=== PATIENT | female | born 1980 | race Caucasian/White ===

== ENCOUNTER 2020-06-26 13:16 | Inpatient (IN) | payer SELFPAY ==
[2020-06-26] VITALS (37 sets, daily range): BP systolic 106–156; BP diastolic 59–109; PULSE 68–104; RESP 11–28; TEMP 36–36.9; O2SAT 96–100
--- NOTE | 2020-06-26 13:15 | RT.EKG_ITS ---
APPROVED REPORT Exam: Resting ECG Patient Location: E HR:76 bpm ECG Measurements Heart Rate 76 AXIS WA 124 P 76 QRSd 89 QRS 49 QT 432 T 38 QTc 484 Conclusion Sinus rhythm...normal P axis, V-rate 60- 99 qtc 484
[2020-06-26] MEDS: Lactated Ringers 1,000 ML 1000 ML IV (13:35)
[2020-06-26 13:41] LABS: Abs Immature Grans 0.03 10^3/uL (0.0-0.06); Absolute Basophil Count 0.07 10^3/uL (0.0-0.2); Absolute Eosinophil Count 0.07 10^3/uL (0.0-0.7); Absolute Lymphocyte Count 2.19 10^3/uL (1.2-3.4); Absolute Monocyte Count 0.72 10^3/uL (0.1-0.8); Absolute Neutrophil Count 6.14 10^3/uL (1.2-6.7); Basophils % 0.8; Eosinophils % 0.8; HCT 45.7 % (36.0-46.0); HGB 15.8 g/dL (11.2-15.7); Immature Grans % 0.3; Lymphocytes % 23.8; MCH 34.6 pg (27.0-33.0); MCHC 34.6 % (32.0-36.0); MPV 9.3 fL (8.0-11.0); Monocytes % 7.8; Neutrophils % 66.5; Nucleated RBC 0 %; Platelet Count 346 10^3/uL (130-400); RBC 4.57 10^6/uL (3.93-5.22); RDW 12.6 % (11.7-14.6); RDW-SD 46.9 fL; WBC 9.22 10^3/uL (4.4-10.8)
[2020-06-26] MEDS: POTASSIUM CHLORIDE 20 MEQ/100 ML BAG 50 MEQ (13:44)
[2020-06-26] MEDS: LORazepam 2 MG/ML VIAL 1 MG IVP (13:45)
[2020-06-26] MEDS: Metoclopramide 10 MG/2 ML VIAL 20 MG IVP ×2 (13:45→19:28)
[2020-06-26 14:00] LABS: ALT 75 U/L (14-59); AST 135 U/L (15-37); Albumin 4.3 g/dL (3.4-5.0); Alkaline Phosphatase 104 U/L (46-116); Anion Gap 19.3 mmol/L (3-11); BUN 9 mg/dL (7-18); CO2 20.7 mmol/L (21.0-32.0); CREATININE 1.11 mg/dL (0.55-1.02); Calcium 9.4 mg/dL (8.5-10.1); Chloride 100 mmol/L (98-107); Estimated GFR 54.17 (mL/min/1.73m2); Glucose 142 mg/dL (74-106); Magnesium 1.5 mg/dL (1.8-2.4); Potassium 3.8 mmol/L (3.5-5.1); Sodium 140 mmol/L (136-145); Total Protein 8.5 g/dL (6.4-8.2)
--- NOTE | 2020-06-26 14:30 | DI.CT_ITS ---
EXAM: CT ABDOMEN PELVIS W CLINICAL HISTORY: Vomiting, lower abdominal pain. TECHNIQUE: Imaging Protocol: Axial computed tomography images with coronal and sagittal reformatted images were created and reviewed CONTRAST MATERIAL: Intravenous: Omnipaque 350 Contrast volume:. Cc Oral: no COMPARISON: No exams were available for comparison FINDINGS: ABDOMEN: Lung Bases: Normal where visualized. Liver: Mild fatty infiltration. Area of focal fat near the falciform ligament.. No measurable mass. Gallbladder and biliary tract: No radiodense calculus or dilation. Pancreas: Normal density, no abnormal calcifications or inflammatory process. Spleen: Normal. Kidneys: Normal size, contour and axis. No radiodense stones or obstructive uropathy. No masses seen. Adrenal glands: No masses seen. Abdominal Aorta: Abdominal portion non-dilated. PELVIS: Bladder: Symmetric distention, no gross wall thickening. Bowel: The colon is mostly collapsed. Suture material is seen near the base of the cecum, presumably related to appendectomy. The surgical clip is also present. No obstruction or bowel wall thickenin g. Peritoneal cavity: No ascites, collection or mesenteric inflammatory response. No free air. Bones: Within normal limits. Partial sacralization of L5. Reproductive organs: Within normal limits. Right ovary is not identified. Lymph nodes: Unremarkable. Impression: No acute abnormality is identified in the abdomen and pelvis. RADIATION DOSE DELIVERED: 622.9mGy.cm Total DLP DATA REPOSITORY: All CT scans at this facility are submitted to the National Radiology Data Registry (NRDR) Dose Index Registry (DIR) with the [employer] (ACR). RADIATION OPTIMIZATION: All CT scans at this facility use at least one of these dose optimization te chniques: automated exposure control; mA and/or kV adjustment per patient size (includes targeted exa ms where dose is matched to clinical indication); or iterative reconstruction.
[2020-06-26] MEDS: MAGNESIUM SULFATE 1 GM/100 ML BAG IVPB (14:45)
[2020-06-26] MEDS: DEXTROSE 5%-0.9% SALINE 1,000 ML 200 ML IV ×2 (14:45→20:42)
[2020-06-26] MEDS: Normal Saline Flush 10 ML SYR IVP ×3 (14:46→15:14)
[2020-06-26] MEDS: diphenhydrAMINE 50 MG/ML VIAL 25 MG IVP (15:06)
[2020-06-26] MEDS: Prochlorperazine 10 MG/2 ML VIAL IVP ×2 (15:07→21:41)
[2020-06-26] MEDS: Omnipaque 350 MG/ML 100 ML BTL IJ (15:13)
[2020-06-26] MEDS: Normal Saline - Diluent 50 ML VIAL IV (15:14)
--- NOTE | 2020-06-26 15:22 | W.ED.GENAD ---
Discharge Plan Disposition Condition: Improving Discharge Details Chief Complaint: Nausea/Vomit/Diar Admit Date/Time: 06/26/20 20:02 Admit Provider: Noel Fabian Attending Provider: Noel Fabian Primary Care Provider: Unknown,Unknown ED Provider: Teo Varner Discharge Instructions Activity:: Activity as Tolerated Equipment/Supplies:: No Equipment Needed Diet:: As Tolerated Discharge Orders Discharge Orders: Discharge Order (Routine); Ordered 06/27/20 Ordered By: Malena Nunez Discharge Data Discharge Date/Time-TO BE ENTERED AT DEPARTURE: 06/26/20 20:31 Medical Decision Making 14:30??40-year-old female presents with nausea and excessive vomiting today. Patient is tachypneic, anxious, and has spasm of bilateral hands. Suspect hyperventilation, consider electrolyte abnormalities. Screening ECG was reviewed: Please see report. Nondiagnostic. QTC 484. Patient given Reglan IV, Ativan IV, IV fluid bolus. Consider acute intra-abdominal surgical process and will obtain CT of the abdomen pelvis. Patient regularly consumes heavy amounts of alcohol. Last alcohol beverage was last night. No tremor. --Labs reviewed and anion gap acidosis noted. Low mag noted. Potassium normal. 15:30 --patient continues to have nausea. I will give Compazine IV and Benadryl IV. We will give D5 normal saline to correct anion gap and magnesium IV. --Patient was given Compazine and Benadryl for continued nausea. --Patient was observed inducing vomiting digitally by nursing. I recommended that she stop doing this. --Patient has received a liter of crystalloid and liter of D5 normal saline. Plan to recheck chemistry. Continues to have nausea, will redose Reglan IV. HPI General Mode of arrival: EMS. Date/Time Provider Initiated Documentation: 06/26/20 13:33. Limitations to Documentation: no limitations. Information obtained by: patient and EMS. HPI Narrative: 40-year-old female presents with chief complaint of vomiting. Patient notes she is vomited 30 times today. Nausea started this morning. Yesterday she felt fine. Symptoms are severe. No hematemesis. No modifiers. She has associated lower abdominal pain. Described as sharp and cramping. She believes she has stomach flu. No known sick contacts. Patient does admit to regular and heavy alcohol consumption. She states she has 4 glasses of wine a night, every night. When I asked her her max drinks tonight she says 6. Patient notes she is having some spasms of her hands bilaterally. No headache. Related Data Home Medications Medication Instructions Recorded Confirmed ondansetron HCl [Zofran] 4 mg PO Q6H PRN #10 tab 06/27/20 Previous Rx's Medication Instructions Recorded ondansetron HCl [Zofran] 4 mg PO Q6H PRN #10 tab 06/27/20 Allergies Allergy/AdvReac Type Severity Reaction Status Date / Time No Known Allergies Allergy Unverified 06/26/20 13:29 General Stated Complaint: Nausea/Vomit/Diar ROXANNE: 3 Review of Systems All systems reviewed & are unremarkable except as noted in HPI and below Constitutional Constitutional: Denies fever(s) Cardiovascular Cardiovascular: Denies chest pain and Denies dyspnea Respiratory Respiratory: Denies dyspnea Gastrointestinal Gastrointestinal: Reports as per HPI [facility] Medical History Alcohol use disorder Smoker Surgical History H/O oophorectomy H/O tubal ligation Hx of appendectomy Social History (Updated 06/26/20 @ 22:27 by Noel Fabian) Smoking risk assessment performed?: No Alcohol Intake: current Alcohol Intake frequency: 3 or more drinks per day Drug use: Daily Substance use type: marijuana and crack/cocaine Details: States cocaine rare, did use on Thursday. Denies opioids. Current gender identity: female Do you feel safe at home: Yes Do you feel safe in your relationship?: Yes Additional Social history: Lives with her boyfriend Avinash Babb Not currently working. Has children, but they live with their father. Exam Const General: cooperative and no acute distress [facility] Head: normocephalic and atraumatic Mouth: moist mucous membranes Eyes Conjunctivae: normal conjunctivae Sclera: normal sclerae Neck Neck: trachea midline and supple Resp Effort & Inspection: tachypneic Auscultation: clear to auscultation bilaterally, no rales, no rhonchi and no wheezes Cardio Rate: regular rate and not tachycardic Rhythm: regular rhythm GI Palpation: soft, not firm, no guarding, no masses, not rigid and tender in the LLQ and in the RLQ Skin General skin exam: no rashes or lesions noted Neuro General: patient alert, patient awake, patient oriented x3 and tone normal Extrem General: no edema Psych Appearance: grossly normal Mental Status: mental status grossly normal Course Vital Signs Vital signs: Vital Signs Temperature 36.1 C L 06/26/20 13:24 Pulse 86 06/26/20 13:24 Respiratory Rate 28 H 06/26/20 13:24 Blood Pressure 143/109 H 06/26/20 13:24 Pulse Oximetry 100 06/26/20 13:24 Temperature 36.1 C L 06/26/20 13:24 Temperature Source Skin 06/26/20 13:24 Pulse 76 06/26/20 14:01 Pulse 90 06/26/20 15:00 Respiratory Rate 16 06/26/20 15:00 Respiratory Effort Non-Labored 06/26/20 13:29 Respiratory Pattern Tachypnea 06/26/20 13:35 Blood Pressure 137/88 06/26/20 14:01 Blood Pressure Mean 100 06/26/20 14:01 Blood Pressure Position Sitting 06/26/20 13:24 Pulse Oximetry 98 06/26/20 15:00 Oxygen Delivery Method Room Air 06/26/20 13:24 Oxygen Flow Rate 0 06/26/20 13:24 Lab/Test Results Lab/Test Results: Laboratory Tests Range/Units 06/26/20 06/26/20 13:30 13:30 WBC (4.4-10.8) 10^3/uL 9.22 RBC (3.93-5.22) 10^6/uL 4.57 Hgb (11.2-15.7) g/dL 15.8 H Hct (36.0-46.0) % 45.7 MCV (80-95) fL 100.0 H MCH (27.0-33.0) pg 34.6 H MCHC (32.0-36.0) % 34.6 RDW (11.7-14.6) % 12.6 Plt Count (130-400) 10^3/uL 346 MPV (8.0-11.0) fL 9.3 Immature Gran % 0.3 Neutrophils % 66.5 Lymphocytes % 23.8 Monocytes % 7.8 Eosinophils % 0.8 Basophils % 0.8 Nucleated RBC % % 0 Absolute Neutrophils (1.2-6.7) 10^3/uL 6.14 Absolute Lymphocytes (1.2-3.4) 10^3/uL 2.19 Absolute Monocytes (0.1-0.8) 10^3/uL 0.72 Absolute Eosinophils (0.0-0.7) 10^3/uL 0.07 Absolute Basophils (0.0-0.2) 10^3/uL 0.07 Sodium (136-145) mmol/L 140 Potassium (3.5-5.1) mmol/L 3.8 Chloride (98-107) mmol/L 100 Carbon Dioxide (21.0-32.0) mmol/L 20.7 L Anion Gap (3-11) mmol/L 19.3 H BUN (7-18) mg/dL 9 Creatinine (0.55-1.02) mg/dL 1.11 H Estimated GFR/1.73 m2 (mL/min/1.73m2) 54.17 Glucose (74-106) mg/dL 142 H Calcium (8.5-10.1) mg/dL 9.4 Magnesium (1.8-2.4) mg/dL 1.5 L Total Bilirubin (0.2-1.0) mg/dL 1.0 AST (15-37) U/L 135 H ALT (14-59) U/L 75 H Alkaline Phosphatase (46-116) U/L 104 Total Protein (6.4-8.2) g/dL 8.5 H Albumin (3.4-5.0) g/dL 4.3
[2020-06-26 19:41] LABS: Anion Gap 9.8 mmol/L (3-11); BUN 8 mg/dL (7-18); CO2 25.2 mmol/L (21.0-32.0); CREATININE 0.92 mg/dL (0.55-1.02); Calcium 8.1 mg/dL (8.5-10.1); Chloride 103 mmol/L (98-107); Glucose 204 mg/dL (74-106); Potassium 3.8 mmol/L (3.5-5.1); Sodium 138 mmol/L (136-145)
[2020-06-26 19:59] LABS: Bilirubin Negative (Negative); Blood Moderate (Negative); Clarity Clear (Clear); Glucose 100 mg/dL (Negative); Ketones Negative (Negative); Leukocyte Esterase Negative (Negative); Nitrite Negative (Negative); Specific Gravity 1.015 (1.005-1.025); Urobilinogen 0.2 EU/dL (Up TO 0.2); pH 8.5 (5-8)
[2020-06-26 20:06] LABS: Lipase 158 U/L (73-393)
[2020-06-26 20:15] LABS: *AMPHETAMINES SCREEN URINE Negative (Negative); *BARBITURATES SCREEN URINE Negative (Negative); *BENZODIAZEPINES SCREEN URINE Negative (Negative); Cannabinoids THC POSITIVE (Negative); Cocaine Screen,Urine POSITIVE (Negative); METHADONE URINE SCREEN Negative (Negative); OPIATES URINE SCREEN Negative (Negative)
[2020-06-26 20:19] LABS: Tricyclic Antidepressants Negative (Negative)
[2020-06-26 20:24] LABS: Bacteria Negative HPF (Negative); C & S Indicated? No; Crystals Negative HPF (Negative); Epithelial Cells Many HPF (Negative); Mucus Negative (Negative); RBC 0-2 HPF (0-2); WBC Negative HPF (0-5)
[2020-06-26] MEDS: Normal Saline 1,000 ML 150 ML IV (20:51)
--- NOTE | 2020-06-26 21:23 | HPE_ITS ---
Date of service: 06/26/20 Time of Service: 22:14 Assessment and Plan Assessment and plan (1) Vomiting: Status: Acute Assessment and plan: Patient presenting with intractable vomiting associate with mid abdominal pain and some loose stools. Failed conservative management with hydration and antiemetics in the emergency room and has been admitted for observation and supportive care. Etiology of the vomiting abdominal pain is unclear. Currently she does not have a surgical abdomen and she appears adequately hydrated after resuscitation in the emergency room with a closure of her anion gap. CT and lipase not consistent with pancreatitis. Patient has some alcoholic hepatitis evident on liver enzymes, but her clinical presentation is not consistent with alcohol withdrawal as she does not have ta chycardia or tremors and did not respond to lorazepam in the emergency room. We will monitor for development of alcohol withdrawal. This may be infectious. The patient's warfarin did have emergency room evaluation for abdominal pain that she thinks is unrelated. Consider stool testing if she does develop significant diarrhea here. hCG was not done, will have this done as a precaution despite her BTL. We will try PPI to treat possible gastritis. Continue maintenance fluids and antiemetics. Consider abdominal ultrasound if not improved in the morning. (2) Alcohol use disorder: Status: Acute Assessment and plan: Patient recognizes excess alcohol consumption. As above I do not think this is alcohol withdrawal. Will offer medical treatment for alcohol use disorder as well as referral for mental health on discharge. (3) Abnormal liver enzymes: Status: Acute Assessment and plan: Pattern with elevated AST consistent with alcoholic hepatitis. MCV is also high. I do not see signs of cirrhosis. She should have hepatitis screens given cocaine use. LFTs with brain labs to trend. (4) Smoker: Status: Acute Assessment and plan: Not currently interested in quitting. Nicotine patch as needed. (5) DVT prophylaxis: Status: Acute Assessment and plan: Given she is in bed and she is a smoker, I will order Lovenox despite her young age. (6) Discharge planning issues: Status: Acute Assessment and plan: Patient is currently being observed on medical floor. She is full code. History of Present Illness History of Present Illness Chief Complaint: abdominal pain Narrative: 40 yo F with h/o BTL, unilateral oopherectomy, and daily alcohol use presents with nausea and vomiting associated with mid abdominal pain starting this morning. Nausea started around 9 AM, 1/2-hour approximately after she got up. She had not eaten any breakfast before the symptoms started. Pain developed after initial nausea and vomiting. Pain is in the mid abdomen, constant, and crampy like her stomach is in a ball. It does not radiate. She has not eaten since the pain started. The only thing that makes it feel better is vomiting, but this relief lasted only for a few seconds. She states she has vomited dozens of times today. The vomit is yellow to green, without blood or coffee grounds. She was seen inducing vomiting in the emergency room, and told the nurse this relieved her pain. I had this type of pain before. She did not eat anything out of the ordinary the night before the pain started. She drinks 4-5 alcoholic beverages tonight, last drink around 10 PM the night before presentation. She has experienced some alcohol withdrawal symptoms in the past, but is not feel like this is similar. She has had 2 loose stools today, but this is a common occurrence for her. There is no blood or black in the stool. She denies any vaginal discharge, and is not had a change in sexual partner in the past year. Review of Systems Constitutional Constitutional: Reports anorexia, Reports chills, Reports excessive sweating, Denies fever(s), Reports lethargy, Reports malaise, Reports poor appetite, Denies weakness and Denies weight loss Eyes Eyes: Denies change in vision and Denies irritation ENT Ears, Nose, Mouth, and Throat: Denies dysphagia, Denies dizziness, Denies nasal congestion, Denies nasal discharge and Denies sore throat Cardiovascular Cardiovascular: Denies chest pain, Denies palpitations and Denies orthopnea Respiratory Respiratory: Reports cough (Mild smoker's cough, no change), Denies excessive phlegm production, Reports pain on inspiration (Abdomen hurts with deep inspiration) and Denies wheezing Gastrointestinal Gastrointestinal: Denies melena, Denies dysphagia, Denies heartburn and Reports loose stools Genitourinary Genitourinary: Denies hematuria, Denies genital lesions, Denies dysuria, Denies pelvic pain, Denies urinary incontinence and Denies vaginal discharge Musculoskeletal Musculoskeletal: Denies back pain and Denies arthralgias Integumentary/Breasts Skin/Breast: Denies rash and Denies skin ulcer Neurologic Neurologic: Denies dizziness, Denies sensory deficit and Denies weakness Psychiatric Psychiatric: Denies mood swings and Denies panic attacks Endocrine Endocrine: Reports excessive sweating and Denies palpitations Hematologic/Lymphatic Hematologic/Lymphatic: Denies easy bleeding Allergic/Immunologic Allergic/Immunologic: Denies wheezing PFSH Medical History Alcohol use disorder Smoker Surgical History H/O oophorectomy H/O tubal ligation Hx of appendectomy Social History (Updated 06/26/20 @ 22:27 by Noel Fabian) Smoking risk assessment performed?: No Alcohol Intake: current Alcohol Intake frequency: 3 or more drinks per day Drug use: Daily Substance use type: marijuana and crack/cocaine Details: States cocaine rare, did use on Thursday. Denies opioids. Current gender identity: female Do you feel safe at home: Yes Do you feel safe in your relationship?: Yes Additional Social history: Lives with her boyfriend Avinash Babb Not currently working. Has children, but they live with their father. Female Reproductive History Menstrual Duration of menses: 6-7 days (Coming every 3 weeks, more heavy than previously) control method: permanent sterilization Meds Home Medications and Allergies Home Medications Medication Instructions Recorded Confirmed Type Unknown [No Known Home Meds] 06/26/20 06/26/20 History Allergies Allergy/AdvReac Type Severity Reaction Status Date / Time No Known Allergies Allergy Unverified 06/26/20 13:29 Exam Narrative Exam Narrative: GEN: Alert and oriented, uncomfortable but pleasent and cooperative, gives linear history. Mild to moderate acute distress at rest. HEENT: Head atraumatic. Conjunctiva clear, no icterus. PEERL, EOMI. no rhinorrhea. MMM, OP benign. Neck is supple with no masses or lymphadenopathy, trachea midline LUNGS: CTAB with normal effort CV: RRR with no murmurs, gallops, or rubs. ABD: Hypoactive BS, soft. Moderate to severe abdominal tenderness periumbilical with palpation, less tender in the upper quadrants and minimally tender in the pubic area. Not distended. No overt guarding or rebound EXT: no cyanosis, clubbing, or edema. Legs nontender to palpation MSK: No joint redness or swelling. No CVA tenderness NEURO: CN 2-12 grossly intact. Normal movement of 4 extremities. Normal speech and coordination SKIN: No rashs or open wounds. PSYCH: normal mood and affect Results Labs Result diagrams: 06/26/20 13:30 06/26/20 19:16 Labs: Laboratory Results - last 24 hr 06/26/20 06/26/20 06/26/20 13:30 13:30 19:16 WBC 9.22 RBC 4.57 Hgb 15.8 H Hct 45.7 MCV 100.0 H MCH 34.6 H MCHC 34.6 RDW 12.6 Plt Count 346 MPV 9.3 Immature Gran % 0.3 Neutrophils % 66.5 Lymphocytes % 23.8 Monocytes % 7.8 Eosinophils % 0.8 Basophils % 0.8 Nucleated RBC % 0 Absolute Neutrophils 6.14 Absolute Lymphocytes 2.19 Absolute Monocytes 0.72 Absolute Eosinophils 0.07 Absolute Basophils 0.07 Sodium 140 138 Potassium 3.8 3.8 Chloride 100 103 Carbon Dioxide 20.7 L 25.2 Anion Gap 19.3 H 9.8 BUN 9 8 Creatinine 1.11 H 0.92 Estimated GFR/1.73 m2 54.17 >= 60.00 Glucose 142 H 204 H Calcium 9.4 8.1 L Magnesium 1.5 L Total Bilirubin 1.0 AST 135 H ALT 75 H Alkaline Phosphatase 104 Total Protein 8.5 H Albumin 4.3 Lipase Urine Color Urine Clarity Urine pH Ur Specific [place] Urine Protein Urine Ketones Urine Blood Urine Nitrite Urine Bilirubin Urine Urobilinogen Ur Leukocyte Esterase Urine RBC Urine WBC Ur Epithelial Cells Urine Crystals Urine Bacteria Urine Mucus Ur Culture Indicated? Urine Glucose Urine Opiates Screen Urine Methadone Screen Ur Barbiturates Screen Ur Tricyclics Screen Ur Amphetamines Screen U Benzodiazepines Scrn Urine Cocaine Screen Ur THC Screen 06/26/20 06/26/20 06/26/20 19:16 19:50 19:50 WBC RBC Hgb Hct MCV MCH MCHC RDW Plt Count MPV Immature Gran % Neutrophils % Lymphocytes % Monocytes % Eosinophils % Basophils % Nucleated RBC % Absolute Neutrophils Absolute Lymphocytes Absolute Monocytes Absolute Eosinophils Absolute Basophils Sodium Potassium Chloride Carbon Dioxide Anion Gap BUN Creatinine Estimated GFR/1.73 m2 Glucose Calcium Magnesium Total Bilirubin AST ALT Alkaline Phosphatase Total Protein Albumin Lipase 158 Urine Color Yellow Urine Clarity Clear Urine pH 8.5 H Ur Specific [place] 1.015 Urine Protein Negative Urine Ketones Negative Urine Blood Moderate H Urine Nitrite Negative Urine Bilirubin Negative Urine Urobilinogen 0.2 Ur Leukocyte Esterase Negative Urine RBC 0-2 Urine WBC Negative Ur Epithelial Cells Many Urine Crystals Negative Urine Bacteria Negative Urine Mucus Negative Ur Culture Indicated? No Urine Glucose 100 Urine Opiates Screen Negative Urine Methadone Screen Negative Ur Barbiturates Screen Negative Ur Tricyclics Screen Negative Ur Amphetamines Screen Negative U Benzodiazepines Scrn Negative Urine Cocaine Screen Positive A Ur THC Screen Positive A Last Vital Signs Temp 36 C L 06/26/20 20:53 Pulse 69 06/26/20 20:53 Resp 18 06/26/20 20:53 BP 156/81 H 06/26/20 20:53 Pulse Ox 98 06/26/20 20:53 COVID-19 Screening Have you, or household traveled for leisure in last 14 days?: No Had IN PERSON contact w/suspected or confirmed C-19 person: No
[2020-06-26] MEDS: POTASSIUM CHLORIDE/0.45% NACL 1,000 ML 150 MEQ IV (22:07)
[2020-06-26 23:03] LABS: HCG Qual (Urine) Negative
--- NOTE | 2020-06-27 | DI.US_ITS ---
EXAM: US ABDOMEN RENAL CLINICAL HISTORY: abdominal pain, hematuria TECHNIQUE: Ultrasound of complete upper abdomen performed using standard protocol. COMPARISON: Abdominal CT scan 06/26/2020 was reviewed FINDINGS: There is no ascites evident. LIVER: Liver appears diffusely hyperechoic indicating an element of steatosis. There are no discrete focal hepatic lesions evident on these images. GALLBLADDER/BILIARY: There are no gallstones. No gallbladder wall edema nor pericholecystic fluid. The common hepatic duct isnot dilated, measuring 3-4mm at the level of jodie hepatis. PANCREAS: There is no evidence of pancreatic mass nor dilatation of the pancreatic duct. SPLEEN: The spleen is not enlarged and there are no intrasplenic lesions evident. KIDNEYS:Kidneys exhibit normal size with no evidence of solid mass, calculus, nor hydronephrosis. No cortical cysts evident. ABDOMINAL AORTA: There is no evidence of abdominal aortic aneurysm. IVC: Normal diameter where visualized. IMPRESSION: 1. No evidence of cholelithiasis nor dilatation of the biliary tree. 2. No other significant ultrasound findings in the upper abdomen. 3. There is no ascites. DATA REPOSITORY:
[2020-06-27] MEDS: Normal Saline Flush 10 ML SYR IVP ×2 (02:41→07:46)
[2020-06-27] MEDS: Prochlorperazine 10 MG/2 ML VIAL IVP ×2 (02:42→07:46)
[2020-06-27] MEDS: POTASSIUM CHLORIDE/0.45% NACL 1,000 ML 150 MEQ IV (04:31)
[2020-06-27 06:53] LABS: ALT 47 U/L (14-59); AST 51 U/L (15-37); Albumin 3.3 g/dL (3.4-5.0); Alkaline Phosphatase 86 U/L (46-116); BUN 5 mg/dL (7-18); Bilirubin, Total 1.2 mg/dL (0.2-1.0); CREATININE 0.77 mg/dL (0.55-1.02); Calcium 8.3 mg/dL (8.5-10.1); Chloride 102 mmol/L (98-107); Glucose 106 mg/dL (74-106); Magnesium 1.8 mg/dL (1.8-2.4); Potassium 3.8 mmol/L (3.5-5.1); Sodium 137 mmol/L (136-145); Total Protein 6.9 g/dL (6.4-8.2)
[2020-06-27 07:33] VITALS: BP 135/78; PULSE 84; RESP 20; TEMP 37.3; O2SAT 99
[2020-06-27] MEDS: Pantoprazole 40 MG VIAL IVP (07:46)
[2020-06-27] MEDS: Enoxaparin 40 MG/0.4 ML SYR SC (07:46)
[2020-06-27 09:25] LABS: Platelet Count 269 10^3/uL (130-400)
--- NOTE | 2020-06-27 10:12 | PDOC.CMIN ---
- If Service Date Differs Date of service: 06/27/20 Time of Service: 10:12 Care Management Initial Assess REASON FOR HOSPITALIZATION:: Vomiting PAST MEDICAL HISTORY/PAST SURGICAL HISTORY:: Medical History. Alcohol use disorder. Smoker. Surgical History . H/O oophorectomy. H/O tubal ligation. Hx of appendectomy PREVIOUS FUNCTIONAL STATUS/SOCIAL/FAMILY SUPPORTS:: Ynes lives in an apartment in [facility] in an apartment with her boyfriend and 3 children. She shared that she is not currently employed due to Covid. The family relocated from [place] about 6 months ago and have yet to establish with a PCP or any community services. Her boyfriend is working so they do have some income. Ynes is independent at baseline. CURRENT FUNCTIONAL STATUS:: Ynes was lying in bed when CM met with her. She was polite and agereeable to conversation but stated that her throat hurts from vomiting so she is unable to talk much. She did say that she has a form of Medicaid from [place] but forgot to bring her card with her. She stated that she is feeling somewhat better and anticipated being able to go home later today. ADVANCE DIRECTIVES:: Ynes does not have Advanced Directives and is not interested at this time. Has patient been provided with info about the portal/API?: Yes Did the patient sign up for the portal?: No (brochure provided ) CODE STATUS:: Full Code INSURANCE COVERAGE / FINANCIAL ISSUES:: self pay. Patient states she has state insurance through [place]. CM discussed services available through [facility] and provided a brochure to Ynes. CURRENT HOME/COMMUNITY SERVICES/EQUIPMENT:: none PRIMARY CARE PHYSICIAN:: None local. Dr. Lopez Telephone-doctor on day of admission so one time appointment will be made through [facility]. CM explained the process. POTENTIAL DISCHARGE NEEDS:: PCP, insurance, follow up with new provider PATIENT/FAMILY EDUCATION NEEDS:: Discharge plan, limitations, follow up plan, Ask Me Three TRANSPORTATION:: via private vehicle with boyfriend PLAN:: Ynes will be discharged home later today. She will follow up with the PCP cone cleaner on day of admission day and with her discharge plan of care. She will transport with her boyfriend. She has been provided with information re: Portal and [facility].
--- NOTE | 2020-06-27 11:15 | W.PM.DS.N ---
Date of service: 06/27/20 Time of Service: 11:16 DS: Diagnosis Discharge Diagnosis (1) Vomiting: Status: Acute (2) Alcohol use disorder: Status: Acute (3) Abnormal liver enzymes: Status: Acute (4) Smoker: Status: Acute Discharge Plan Disposition Patient Disposition: HOME Condition: Improving Discharge Details Reason For Visit: VOMITING,DEHYDRATION Admit Date/Time: 06/26/20 20:02 Admit Provider: Noel Fabian Attending Provider: Noel Fabian Primary Care Provider: Unknown,Unknown Hospital Course Hospital Course: This is a 43 year old female with alcohol use disorder and substance abuse who presented to the ED with intractable vomiting associate with mid abdominal pain and some loose stools. Her significant other had reportedly has similar symptoms. She failed conservative management with hydration and antiemetics in the emergency room and was admitted for observation and supportive care. Her labs were consistent with alcoholic hepatitis. LFT's trended downward overnight and hepatitis panel pending at discharge. She did not exhibit any symptoms of withdrawal overnight and imaging was unrevealing to explain her symptoms. Her CT scan showed no acute intra-abdominal or pelvic abnormality and her US showed no evidence of cholelithiasis nor dilatation of the biliary tree. There was no ascities but liver appears diffusely hyperechoic indicating an element of steatosis. There are no discrete focal hepatic lesions evident on these images. Her symptoms improved with hydration and her diet was advanced to clears which she was tolerating well. She has remained hemodynamically stable and is stable for discharge to home. she will be provided ondansetron for home use if needed. She has been set up for pcp follow up appointment and was instructed to return to ED sooner for new or worsening symptoms. discussed with DR Spivey Home Meds and New Rx's Prescriptions: New ondansetron HCl [Zofran] 4 mg tablet 4 mg PO Q6H PRNQty: 10 RF: 0 Discharge Instructions Instructions: Acute Nausea and Vomiting (DC) Additional Instructions: drink 6-8 glasses of fluid daily to stay well hydrated. clear diet and advance as tolerated. you can use ondansetron 4 mg ODT if needed for ongoing nausea and vomiting. If symptoms do not respond or worsen, you should call pcp or return to the ED for evaluation. Stand Alone Forms: Nursing Discharge Form Referrals: Bertha Paiz MD [ [facility]ICIAN] - 07/09/20 10:45 am Unknown,Unknown [Primary Care Provider] - (establish with primary care provider.) Activity:: Activity as Tolerated Equipment/Supplies:: No Equipment Needed Diet:: As Tolerated Discharge Orders Discharge Orders: Discharge Order (Routine); Ordered 06/27/20 Ordered By: Malena Nunez DS: Summary Status at Discharge Functional status at discharge: independent ambulation Overall status at discharge: patient is progressing back to baseline Mental Status: mental status grossly normal Speech and Movement: speech and movement normal Mood: congruent mood Affect: normal affect Exam Narrative Exam Narrative: GEN: pink warm dry and well perfused HEENT: Head atraumatic. Conjunctiva clear, no icterus, EOMI. no rhinorrhea. MMM, OP benign. Neck is supple with no masses or lymphadenopathy, trachea midline LUNGS: respirations even and unlabored CV: RRR with no murmurs, gallops, or rubs. ABD: positive BS, soft. Not distended. No guarding or rebound EXT: moves all extremities. No edema. MSK: No joint redness or swelling or pain NEURO: CN 2-12 grossly intact. Normal movement of 4 extremities. Normal speech and coordination SKIN: No rashes or lesions. PSYCH: normal mood and affect Psych Mental Status: mental status grossly normal Speech and Movement: speech and movement normal Mood: congruent mood Affect: normal affect DS: Data Vitals/I&O Vitals and I&O: Vital Signs Temperature 37.3 C 06/27/20 07:33 Temperature Source Tympanic 06/27/20 07:33 Pulse 84 06/27/20 07:33 Pulse Rhythm Regular 06/27/20 10:34 Pulse 76 06/26/20 19:16 Respiratory Rate 20 06/27/20 07:33 Respiratory Effort Non-Labored 06/27/20 10:34 Respiratory Depth Normal 06/27/20 10:34 Respiratory Pattern Normal 06/27/20 10:34 Blood Pressure 135/78 06/27/20 07:33 Blood Pressure Mean 95 06/26/20 19:16 Blood Pressure Position Sitting 06/26/20 13:24 Pulse Oximetry 99 06/27/20 07:33 Oxygen Delivery Method Room Air 06/27/20 07:33 Oxygen Flow Rate 0 06/27/20 07:33 Pain Level 0 06/27/20 07:33 Intake & Output 06/26/20 06/26/20 06/27/20 11:59 23:59 11:59 Intake Total 3130 / 3130 2560 / 2560 Output Total 900 / 900 Balance 3130 / 3130 1660 / 1660 Weight 59.1 kg 60 kg Intake: IV 3130 / 3130 1959 / 1960 Oral 600 / 600 Output: Urine 800 / 800 Emesis 100 / 100 Other: Urine Color Yellow Urine Appearance Clear Urine Odor Normal Stool Size Small Stool Characteristics Soft Formed Emesis Description Clear/Water Clear/Water Voiding Methods Toilet Data Completed and Pending Labs on day of discharge: Labs from last 24 hours 06/27/20 06/27/20 06/26/20 06:05 06:05 20:07 WBC RBC Hgb Hct MCV MCH MCHC RDW Plt Count 269 MPV Immature Gran % Neutrophils % Lymphocytes % Monocytes % Eosinophils % Basophils % Nucleated RBC % Absolute Neutrophils Absolute Lymphocytes Absolute Monocytes Absolute Eosinophils Absolute Basophils Sodium 137 Potassium 3.8 Chloride 102 Carbon Dioxide 26.0 Anion Gap 9.0 BUN 5 L Creatinine 0.77 Estimated GFR/1.73 m2 >= 60.00 Glucose 106 D Calcium 8.3 L Magnesium 1.8 Total Bilirubin 1.2 H AST 51 H ALT 47 Alkaline Phosphatase 86 Total Protein 6.9 Albumin 3.3 L Lipase Urine Color Urine Clarity Urine pH Ur Specific [place] Urine Protein Urine Ketones Urine Blood Urine Nitrite Urine Bilirubin Urine Urobilinogen Ur Leukocyte Esterase Urine RBC Urine WBC Ur Epithelial Cells Urine Crystals Urine Bacteria Urine Mucus Ur Culture Indicated? Urine Glucose Urine HCG, Qual Urine Opiates Screen Urine Methadone Screen Ur Barbiturates Screen Ur Tricyclics Screen Ur Amphetamines Screen U Benzodiazepines Scrn Urine Cocaine Screen Ur THC Screen SARS-CoV-2 (PCR) Pending Nasopharyn COVID-19 PCR Pending Ref Test Perform Site Pending 06/26/20 06/26/20 06/26/20 19:50 19:50 19:50 WBC RBC Hgb Hct MCV MCH MCHC RDW Plt Count MPV Immature Gran % Neutrophils % Lymphocytes % Monocytes % Eosinophils % Basophils % Nucleated RBC % Absolute Neutrophils Absolute Lymphocytes Absolute Monocytes Absolute Eosinophils Absolute Basophils Sodium Potassium Chloride Carbon Dioxide Anion Gap BUN Creatinine Estimated GFR/1.73 m2 Glucose Calcium Magnesium Total Bilirubin AST ALT Alkaline Phosphatase Total Protein Albumin Lipase Urine Color Yellow Urine Clarity Clear Urine pH 8.5 H Ur Specific [place] 1.015 Urine Protein Negative Urine Ketones Negative Urine Blood Moderate H Urine Nitrite Negative Urine Bilirubin Negative Urine Urobilinogen 0.2 Ur Leukocyte Esterase Negative Urine RBC 0-2 Urine WBC Negative Ur Epithelial Cells Many Urine Crystals Negative Urine Bacteria Negative Urine Mucus Negative Ur Culture Indicated? No Urine Glucose 100 Urine HCG, Qual Negative Urine Opiates Screen Negative Urine Methadone Screen Negative Ur Barbiturates Screen Negative Ur Tricyclics Screen Negative Ur Amphetamines Screen Negative U Benzodiazepines Scrn Negative Urine Cocaine Screen Positive A Ur THC Screen Positive A SARS-CoV-2 (PCR) Ezekielboazn COVID-19 PCR Ref Test Perform Site 06/26/20 06/26/20 06/26/20 19:16 19:16 13:30 WBC 9.22 RBC 4.57 Hgb 15.8 H Hct 45.7 MCV 100.0 H MCH 34.6 H MCHC 34.6 RDW 12.6 Plt Count 346 MPV 9.3 Immature Gran % 0.3 Neutrophils % 66.5 Lymphocytes % 23.8 Monocytes % 7.8 Eosinophils % 0.8 Basophils % 0.8 Nucleated RBC % 0 Absolute Neutrophils 6.14 Absolute Lymphocytes 2.19 Absolute Monocytes 0.72 Absolute Eosinophils 0.07 Absolute Basophils 0.07 Sodium 138 Potassium 3.8 Chloride 103 Carbon Dioxide 25.2 Anion Gap 9.8 BUN 8 Creatinine 0.92 Estimated GFR/1.73 m2 >= 60.00 Glucose 204 H Calcium 8.1 L Magnesium Total Bilirubin AST ALT Alkaline Phosphatase Total Protein Albumin Lipase 158 Urine Color Urine Clarity Urine pH Ur Specific [place] Urine Protein Urine Ketones Urine Blood Urine Nitrite Urine Bilirubin Urine Urobilinogen Ur Leukocyte Esterase Urine RBC Urine WBC Ur Epithelial Cells Urine Crystals Urine Bacteria Urine Mucus Ur Culture Indicated? Urine Glucose Urine HCG, Qual Urine Opiates Screen Urine Methadone Screen Ur Barbiturates Screen Ur Tricyclics Screen Ur Amphetamines Screen U Benzodiazepines Scrn Urine Cocaine Screen Ur THC Screen SARS-CoV-2 (PCR) Ezekielaryn COVID-19 PCR Ref Test Perform Site 06/26/20 13:30 WBC RBC Hgb Hct MCV MCH MCHC RDW Plt Count MPV Immature Gran % Neutrophils % Lymphocytes % Monocytes % Eosinophils % Basophils % Nucleated RBC % Absolute Neutrophils Absolute Lymphocytes Absolute Monocytes Absolute Eosinophils Absolute Basophils Sodium 140 Potassium 3.8 Chloride 100 Carbon Dioxide 20.7 L Anion Gap 19.3 H BUN 9 Creatinine 1.11 H Estimated GFR/1.73 m2 54.17 Glucose 142 H Calcium 9.4 Magnesium 1.5 L Total Bilirubin 1.0 AST 135 H ALT 75 H Alkaline Phosphatase 104 Total Protein 8.5 H Albumin 4.3 Lipase Urine Color Urine Clarity Urine pH Ur Specific [place] Urine Protein Urine Ketones Urine Blood Urine Nitrite Urine Bilirubin Urine Urobilinogen Ur Leukocyte Esterase Urine RBC Urine WBC Ur Epithelial Cells Urine Crystals Urine Bacteria Urine Mucus Ur Culture Indicated? Urine Glucose Urine HCG, Qual Urine Opiates Screen Urine Methadone Screen Ur Barbiturates Screen Ur Tricyclics Screen Ur Amphetamines Screen U Benzodiazepines Scrn Urine Cocaine Screen Ur THC Screen SARS-CoV-2 (PCR) Nasopharyn COVID-19 PCR Ref Test Perform Site [facility] Medical History Alcohol use disorder Smoker Surgical History H/O oophorectomy H/O tubal ligation Hx of appendectomy Social History (Updated 06/26/20 @ 22:27 by Noel Fabian) Smoking risk assessment performed?: No Alcohol Intake: current Alcohol Intake frequency: 3 or more drinks per day Drug use: Daily Substance use type: marijuana and crack/cocaine Details: States cocaine rare, did use on Thursday. Denies opioids. Current gender identity: female Do you feel safe at home: Yes Do you feel safe in your relationship?: Yes Additional Social history: Lives with her boyfriend Avinash Babb Not currently working. Has children, but they live with their father. Female Reproductive History Menstrual Duration of menses: 6-7 days (Coming every 3 weeks, more heavy than previously) control method: permanent sterilization
[2020-06-27 20:34] LABS: COVID-19 RT-PCR UVMMC Result Negative (Negative)
== END 2020-06-27 14:16 | disposition home or self-care (01) | DRG 434 ==
LOC: ER 17:32 → MS 20:30
PROVIDERS: Student in an Organized Health Care Education/Training Program; Admitting Provider Family Medicine; Emergency Provider Student in an Organized Health Care Education/Training Program; Visit Provider Family Medicine
DX: K70.10 Alcoholic hepatitis without ascites (principal); K76.0 Fatty (change of) liver, not elsewhere classified; F10.10 Alcohol abuse, uncomplicated; F17.210 Nicotine dependence, cigarettes, uncomplicated; R79.89 Other specified abnormal findings of blood chemistry
CPT/HCPCS: 36415; 76770; 80048; 80053; 80307; 83690; 93005; 96361; 96365; 96367; 96375; 96376; 99217; 99219; 99285; J1650; U0003; 74177; 76700; 81003; 81015; 81025; 83735; 85025; 85049; 93010; 99238; J0780; J1200; J2060; J2765; J3475; J3480; J3490; J7042